=== PATIENT | male | born 1975 | race Two or more races ===

== ENCOUNTER 2021-08-25 08:40 | Inpatient (IN) | payer MEDICAID, OTHER ==
[~2021-08-25] VITALS: Ht 175.3 cm; Wt 132.5 kg
[2021-08-25] MEDS ORDERED: cloNIDine HCL 0.1 MG TAB ONE (08:44)
[2021-08-25] MEDS ORDERED: cloNIDine HCL 0.1 MG TAB PO ONE (09:00)
[2021-08-25 10:35] LABS: Basophils # (auto) 0.1 10 ^3/uL (0-0.2); Eosinophils # (auto) 0.1 10 ^3/uL (0-0.8); Eosinophils % (auto) 1.9 % (0.0-7.0); Hematocrit 46.9 % (41.0-53.0); Hemoglobin 15.4 g/dL (13.5-17.5); Lymphocytes # (auto) 1.5 10 ^3/uL (0.4-5.4); Lymphocytes % (auto) 20.7 % (10.0-50.0); Mean Corpuscular Hemoglobin 29.8 pg (28.0-32.0); Mean Corpuscular Hgb Conc. 32.9 g/dL (32.0-36.0); Mean Corpuscular Volume 90.7 fL (80.0-100.0); Monocytes # (auto) 0.6 10 ^3/uL (0-1.3); Monocytes % (auto) 8.8 % (0.0-12.0); Neutrophils % (auto) 67.6 % (37.0-80.0); Nucleated Red Blood Cells % 0.1 %; Red Blood Cells 5.17 10^6/uL (4.5-5.90); Red Cell Distribution Width 14.8 % (11.8-14.3); White Blood Cell 7.3 10^3/uL (4.4-10.8)
[2021-08-25 11:06] LABS: Calcium 8.8 mg/dL (8.5-10.1)
[2021-08-25 11:14] LABS: Albumin 3.4 g/dL (3.4-5.0); BUN/Creatinine Ratio 13.8; Potassium 4.2 mmol/L (3.5-5.1)
[2021-08-25 11:31] LABS: Bilirubin, Total 0.3 mg/dL (0.2-1.0); Total Protein 7.6 g/dL (6.4-8.2)
[2021-08-25] MEDS ORDERED: amLODIPine BESYLATE 5 MG TAB ONE (13:00)
[2021-08-25] MEDS ORDERED: amLODIPine BESYLATE 5 MG TAB PO ONE (13:15)
[2021-08-25] MEDS ORDERED: cefTRIAXone 1GM/50ML D5W 50 ML IV ONE (16:30)
[2021-08-25] MEDS ORDERED: CLINDAMYCIN 600MG IV 50 ML IV ONE (16:30)
[2021-08-25] MEDS ORDERED: LABETALOL HCL 5 MG/ML 4ML SYRINGE IV ONE ×2 (17:00→18:15)
[2021-08-25] MEDS ORDERED: hydrALAZINE HCL 20 MG/ML VL IV PRN (18:30)
[2021-08-25] MEDS ORDERED: ACETAMINOPHEN 325 MG TAB PO PRN (18:30)
[2021-08-25] MEDS ORDERED: HYDROcodone-ACET 5/325MG TAB PO PRN (18:30)
[2021-08-25] MEDS ORDERED: NITROGLYCERIN 0.4 MG SL TAB SL PRN (18:30)
[2021-08-25] MEDS ORDERED: MORPHINE SULFATE INJECTION 2 MG/ML SYRG IV PRN ×2 (18:30)
[2021-08-25] MEDS ORDERED: ONDANSETRON HCL 4 MG/2 ML VIAL IV PRN (18:30)
[2021-08-25] MEDS: amLODIPine BESYLATE 5 MG TAB PO SCH (21:48)
[2021-08-25] MEDS: FUROSEMIDE 40 MG/4 ML VIAL IV SCH (21:49)
[2021-08-25] MEDS: DOXYCYCLINE 100MG/250ML 250 ML IV SCH (21:49)
[2021-08-25] MEDS: METOPROLOL TARTRATE 25 MG TAB PO SCH (22:00)
[2021-08-25 22:38] VITALS: BP 154/89
[2021-08-25 23:51] VITALS: BP 154/89
[2021-08-26 05:00] VITALS: BP 143/70
[2021-08-26 05:34] LABS: Basophils # (auto) 0.1 10 ^3/uL (0-0.2); Eosinophils # (auto) 0.3 10 ^3/uL (0-0.8); Eosinophils % (auto) 3.4 % (0.0-7.0); Hematocrit 47.1 % (41.0-53.0); Hemoglobin 15.8 g/dL (13.5-17.5); Lymphocytes # (auto) 1.7 10 ^3/uL (0.4-5.4); Lymphocytes % (auto) 22.3 % (10.0-50.0); Mean Corpuscular Hemoglobin 30.3 pg (28.0-32.0); Mean Corpuscular Hgb Conc. 33.5 g/dL (32.0-36.0); Mean Corpuscular Volume 90.5 fL (80.0-100.0); Monocytes # (auto) 0.8 10 ^3/uL (0-1.3); Monocytes % (auto) 10.7 % (0.0-12.0); Neutrophils # (auto) 4.7 10 ^3/uL (1.6-8.6); Neutrophils % (auto) 62.6 % (37.0-80.0); Nucleated Red Blood Cells % 0.1 %; Red Cell Distribution Width 15.1 % (11.8-14.3); White Blood Cell 7.5 10^3/uL (4.4-10.8)
[2021-08-26] MEDS: FUROSEMIDE 40 MG/4 ML VIAL IV SCH ×2 (05:40→17:44)
[2021-08-26] MEDS: DOXYCYCLINE 100MG/250ML 250 ML IV SCH ×2 (05:40→17:44)
[2021-08-26 05:57] LABS: Albumin 3.5 g/dL (3.4-5.0); Calcium 8.9 mg/dL (8.5-10.1)
[2021-08-26 06:02] LABS: BUN/Creatinine Ratio 16.9; Bilirubin, Total 0.7 mg/dL (0.2-1.0); Total Protein 7.4 g/dL (6.4-8.2)
[2021-08-26 09:00] VITALS: BP 157/84
[2021-08-26] MEDS: METOPROLOL TARTRATE 25 MG TAB PO SCH ×2 (09:55→22:11)
[2021-08-26] MEDS: amLODIPine BESYLATE 5 MG TAB PO SCH (09:56)
[2021-08-26] MEDS: ENOXAPARIN SOD 40 MG/0.4 ML SYRINGE SC SCH (09:56)
[2021-08-26 12:02] VITALS: BP 145/91
[2021-08-26 15:28] LABS: Amphetamine Screen, Urine POSITIVE (NEGATIVE); Barbiturate Scree,Urine NEGATIVE (NEGATIVE); Benzodiazephine Screen, Urine NEGATIVE (NEGATIVE); Cannabinoid Screen, Urine NEGATIVE (NEGATIVE); Cocaine Screen, Urine NEGATIVE (NEGATIVE)
[2021-08-26 15:36] LABS: Alcohol, Urine < 3.0 mg/dL (0-10); Opiate Scree,Urine NEGATIVE (NEGATIVE); Phencyclidine Screen, Urine NEGATIVE (NEGATIVE)
[2021-08-26 17:23] VITALS: BP 143/99
[2021-08-26 22:00] VITALS: BP 141/82
[2021-08-27] MEDS: FUROSEMIDE 40 MG/4 ML VIAL IV SCH ×2 (06:30→17:46)
[2021-08-27] MEDS: DOXYCYCLINE 100MG/250ML 250 ML IV SCH ×2 (06:30→17:47)
[2021-08-27 09:00] VITALS: BP 166/91
[2021-08-27] MEDS: METOPROLOL TARTRATE 25 MG TAB PO SCH ×2 (09:08→22:07)
[2021-08-27] MEDS: ENOXAPARIN SOD 40 MG/0.4 ML SYRINGE SC SCH (09:09)
[2021-08-27] MEDS: amLODIPine BESYLATE 5 MG TAB PO SCH (09:09)
[2021-08-27 13:00] VITALS: BP 152/81
[2021-08-27 16:56] VITALS: BP 145/75
[2021-08-27 22:00] VITALS: BP 148/77
[2021-08-28 05:00] VITALS: BP 120/95
[2021-08-28 05:21] LABS: Basophils # (auto) 0.1 10 ^3/uL (0-0.2); Basophils % (auto) 1.1 % (0.0-2.0); Eosinophils # (auto) 0.2 10 ^3/uL (0-0.8); Eosinophils % (auto) 2.2 % (0.0-7.0); Hemoglobin 17.1 g/dL (13.5-17.5); Lymphocytes # (auto) 2.1 10 ^3/uL (0.4-5.4); Lymphocytes % (auto) 23.3 % (10.0-50.0); Mean Corpuscular Hemoglobin 30.4 pg (28.0-32.0); Mean Corpuscular Hgb Conc. 33.6 g/dL (32.0-36.0); Mean Corpuscular Volume 90.5 fL (80.0-100.0); Monocytes # (auto) 1.1 10 ^3/uL (0-1.3); Monocytes % (auto) 12.3 % (0.0-12.0); Neutrophils # (auto) 5.6 10 ^3/uL (1.6-8.6); Neutrophils % (auto) 61.1 % (37.0-80.0); Nucleated Red Blood Cells % 0.2 %; Red Blood Cells 5.64 10^6/uL (4.5-5.90); Red Cell Distribution Width 14.9 % (11.8-14.3); White Blood Cell 9.2 10^3/uL (4.4-10.8)
[2021-08-28] MEDS: FUROSEMIDE 40 MG/4 ML VIAL IV SCH (06:00)
[2021-08-28] MEDS: DOXYCYCLINE 100MG/250ML 250 ML IV SCH (06:30)
[2021-08-28 08:54] LABS: Anion Gap 8 (5-15); BUN/Creatinine Ratio 25.8; Blood Urea Nitrogen 24 mg/dL (7-18); Calcium 8.9 mg/dL (8.5-10.1); Carbon Dioxide 22 mmol/L (21-32); Chloride 103 mmol/L (98-107); GFR African American 114 mL/min; GFR Non-African American 94 mL/min; Glucose 105 mg/dL (74-106); Magnesium 2.6 mg/dL (1.6-2.6); Potassium 3.8 mmol/L (3.5-5.1); Sodium 133 mmol/L (136-145)
[2021-08-28 09:00] VITALS: BP 125/80
[2021-08-28] MEDS: METOPROLOL TARTRATE 25 MG TAB PO SCH (09:12)
[2021-08-28] MEDS: amLODIPine BESYLATE 5 MG TAB PO SCH (09:13)
[2021-08-28] MEDS: ENOXAPARIN SOD 40 MG/0.4 ML SYRINGE SC SCH (09:14)
[2021-08-28 13:00] VITALS: BP 151/90
[2021-08-28 17:00] VITALS: BP 129/67
[2021-08-28 18:16] VITALS: BP 129/67
== END 2021-08-28 21:10 | disposition home or self-care (01) | DRG 383 ==
LOC: ER 08:40 → TELE 18:28 → TELE-CENTR 22:06
PROVIDERS: ADMIT Internal Medicine; ATTEND Internal Medicine
DX: L03.115 Cellulitis of right lower limb (principal); I11.0 Hypertensive heart disease with heart failure; I50.9 Heart failure, unspecified; S81.802A Unspecified open wound, left lower leg, initial encounter; E66.01 Morbid (severe) obesity due to excess calories; I16.1 Hypertensive emergency; F17.210 Nicotine dependence, cigarettes, uncomplicated; Z20.822 Contact with and (suspected) exposure to COVID-19; L03.116 Cellulitis of left lower limb; Z88.0 Allergy status to penicillin; Z68.42 Body mass index [BMI] 45.0-49.9, adult; Z71.6 Tobacco abuse counseling; X58.XXXA Exposure to other specified factors, initial encounter; Y93.89 Activity, other specified; Y92.89 Other specified places as the place of occurrence of the external cause; Y99.8 Other external cause status
CPT/HCPCS: 36415; 71045; 73700; 80048; 80053; 80307; 83735; 83880; 84484; 85025; 87426; 93005; 93306; 93925; 93970; 96365; 96366; 96367; 96375; 96376; 99291; G0378; J0696; J3490

== ENCOUNTER 2021-12-18 00:46 | Emergency (ER) | payer MEDICAID ==
[~2021-12-18] VITALS: Ht 172.7 cm; Wt 103.4 kg
[2021-12-18 03:59] VITALS: BP 206/92
== END 2021-12-18 04:23 | disposition home or self-care (01) ==
LOC: ER 00:48
DX: L03.115 Cellulitis of right lower limb (principal); I10 Essential (primary) hypertension; F17.210 Nicotine dependence, cigarettes, uncomplicated; Z88.0 Allergy status to penicillin
CPT/HCPCS: 93005

== ENCOUNTER 2022-02-18 03:09 | Inpatient (IN) | payer MEDICAID ==
[~2022-02-18] VITALS: Ht 175.3 cm; Wt 131.9 kg
[2022-02-18 03:40] LABS: Basophils # (auto) 0.1 10 ^3/uL (0-0.2); Basophils % (auto) 0.6 % (0.0-2.0); Eosinophils # (auto) 0.1 10 ^3/uL (0-0.8); Eosinophils % (auto) 0.8 % (0.0-7.0); Hematocrit 42.2 % (41.0-53.0); Hemoglobin 14.1 g/dL (13.5-17.5); Lymphocytes # (auto) 1.8 10 ^3/uL (0.4-5.4); Lymphocytes % (auto) 13.5 % (10.0-50.0); Mean Corpuscular Hemoglobin 29.3 pg (28.0-32.0); Mean Corpuscular Hgb Conc. 33.4 g/dL (32.0-36.0); Mean Corpuscular Volume 87.6 fL (80.0-100.0); Monocytes # (auto) 1.2 10 ^3/uL (0-1.3); Monocytes % (auto) 9.1 % (0.0-12.0); Neutrophils # (auto) 9.8 10 ^3/uL (1.6-8.6); Red Blood Cells 4.81 10^6/uL (4.5-5.90); Red Cell Distribution Width 14.5 % (11.8-14.3)
[2022-02-18 03:55] LABS: Potassium 4.1 mmol/L (3.5-5.1)
[2022-02-18 03:59] LABS: Albumin 3.3 g/dL (3.4-5.0); BUN/Creatinine Ratio 12.3; Calcium 8.8 mg/dL (8.5-10.1); Magnesium 2.3 mg/dL (1.6-2.6)
[2022-02-18 04:01] LABS: Bilirubin, Total 0.4 mg/dL (0.2-1.0); Total Protein 7.7 g/dL (6.4-8.2)
[2022-02-18 06:11] LABS: Urine Bacteria NONE SEEN /hpf (None Seen); Urine Blood Negative /uL (Negative); Urine Specific Gravity 1.013 (1.001-1.035); Urine WBC <1 /hpf (0 - 3)
[2022-02-18 06:42] LABS: Alcohol, Urine < 3.0 mg/dL (0-10); Amphetamine Screen, Urine POSITIVE (NEGATIVE); Barbiturate Scree,Urine NEGATIVE (NEGATIVE); Benzodiazephine Screen, Urine NEGATIVE (NEGATIVE); Cannabinoid Screen, Urine NEGATIVE (NEGATIVE); Cocaine Screen, Urine NEGATIVE (NEGATIVE); Phencyclidine Screen, Urine NEGATIVE (NEGATIVE)
[2022-02-18 06:50] LABS: Opiate Scree,Urine NEGATIVE (NEGATIVE)
[2022-02-18] MEDS ORDERED: CLINDAMYCIN 600MG IV 50 ML IV ONE (07:15)
[2022-02-18] MEDS ORDERED: cefTRIAXone 1GM/50ML D5W 50 ML IV ONE (07:15)
[2022-02-18] MEDS ORDERED: IBUPROFEN 600 MG TAB PO ONE ×2 (08:15→14:15)
[2022-02-18] MEDS ORDERED: FUROSEMIDE 40 MG/4 ML VIAL IV ONE (08:45)
[2022-02-18] MEDS ORDERED: LABETALOL HCL 5 MG/ML 4ML SYRINGE IV ONE (09:00)
[2022-02-18] MEDS ORDERED: hydrALAZINE HCL 20 MG/ML VL IV ONE (10:00)
[2022-02-18] MEDS: METOPROLOL TARTRATE 25 MG TAB PO SCH ×2 (11:42→22:47)
[2022-02-18] MEDS: LISINOPRIL 20 MG TAB PO SCH (11:43)
[2022-02-18] MEDS ORDERED: DOCUSATE SOD 100 MG CAP PO PRN (15:45)
[2022-02-18] MEDS ORDERED: NITROGLYCERIN 0.4 MG SL TAB SL PRN (15:45)
[2022-02-18] MEDS ORDERED: ONDANSETRON HCL 4 MG/2 ML VIAL IV PRN (15:45)
[2022-02-18] MEDS ORDERED: HYDROcodone-ACET 5/325MG TAB PO PRN (15:45)
[2022-02-18] MEDS ORDERED: ACETAMINOPHEN 325 MG TAB PO PRN (15:45)
[2022-02-18] MEDS ORDERED: MORPHINE SULFATE INJECTION 2 MG/ML SYRG IV PRN (15:45)
[2022-02-18] MEDS: FUROSEMIDE 40 MG/4 ML VIAL IV SCH (18:31)
[2022-02-18] MEDS: CLINDAMYCIN 600MG IV 50 ML IV SCH (18:31)
[2022-02-18 22:00] VITALS: BP 155/78
[2022-02-18] MEDS: POTASSIUM CHL 20 Meq TABLET PO SCH (22:47)
[2022-02-18 22:56] VITALS: BP 155/78
[2022-02-19] MEDS: CLINDAMYCIN 600MG IV 50 ML IV SCH ×3 (02:13→17:57)
[2022-02-19] MEDS ORDERED: AMLO-489 PO (02:52)
[2022-02-19 05:00] VITALS: BP 138/81
[2022-02-19] MEDS: FUROSEMIDE 40 MG/4 ML VIAL IV SCH ×2 (05:45→17:57)
[2022-02-19 09:00] VITALS: BP 163/90
[2022-02-19] MEDS: POTASSIUM CHL 20 Meq TABLET PO SCH ×2 (09:04→22:00)
[2022-02-19] MEDS: METOPROLOL TARTRATE 25 MG TAB PO SCH ×2 (09:04→22:52)
[2022-02-19] MEDS: LISINOPRIL 20 MG TAB PO SCH (09:05)
[2022-02-19 09:24] LABS: Basophils # (auto) 0.1 10 ^3/uL (0-0.2); Basophils % (auto) 0.8 % (0.0-2.0); Eosinophils # (auto) 0.1 10 ^3/uL (0-0.8); Eosinophils % (auto) 0.7 % (0.0-7.0); Hematocrit 40.5 % (41.0-53.0); Hemoglobin 13.8 g/dL (13.5-17.5); Lymphocytes # (auto) 1.3 10 ^3/uL (0.4-5.4); Lymphocytes % (auto) 12.8 % (10.0-50.0); Mean Corpuscular Hemoglobin 29.7 pg (28.0-32.0); Mean Corpuscular Volume 87.3 fL (80.0-100.0); Monocytes # (auto) 1.2 10 ^3/uL (0-1.3); Monocytes % (auto) 11.8 % (0.0-12.0); Neutrophils # (auto) 7.5 10 ^3/uL (1.6-8.6); Neutrophils % (auto) 73.9 % (37.0-80.0); Nucleated Red Blood Cells % 0.1 %; Red Blood Cells 4.64 10^6/uL (4.5-5.90); Red Cell Distribution Width 14.8 % (11.8-14.3); White Blood Cell 10.2 10^3/uL (4.4-10.8)
[2022-02-19 09:42] LABS: Calcium 8.9 mg/dL (8.5-10.1); Potassium 4.2 mmol/L (3.5-5.1)
[2022-02-19 09:44] LABS: BUN/Creatinine Ratio 12.9
[2022-02-19 13:00] VITALS: BP 153/75
[2022-02-19 17:00] VITALS: BP 151/68
[2022-02-19 22:00] VITALS: BP 145/91
[2022-02-20] MEDS: CLINDAMYCIN 600MG IV 50 ML IV SCH ×3 (02:04→17:31)
[2022-02-20 05:00] VITALS: BP 149/95
[2022-02-20] MEDS: FUROSEMIDE 40 MG/4 ML VIAL IV SCH (05:41)
[2022-02-20 06:04] LABS: Basophils # (auto) 0.1 10 ^3/uL (0-0.2); Basophils % (auto) 1.3 % (0.0-2.0); Eosinophils # (auto) 0.1 10 ^3/uL (0-0.8); Eosinophils % (auto) 1.8 % (0.0-7.0); Hematocrit 42.6 % (41.0-53.0); Hemoglobin 14.4 g/dL (13.5-17.5); Lymphocytes # (auto) 1.9 10 ^3/uL (0.4-5.4); Lymphocytes % (auto) 23.6 % (10.0-50.0); Mean Corpuscular Hemoglobin 29.4 pg (28.0-32.0); Mean Corpuscular Hgb Conc. 33.7 g/dL (32.0-36.0); Mean Corpuscular Volume 87.1 fL (80.0-100.0); Monocytes # (auto) 1.2 10 ^3/uL (0-1.3); Monocytes % (auto) 15.6 % (0.0-12.0); Neutrophils # (auto) 4.5 10 ^3/uL (1.6-8.6); Neutrophils % (auto) 57.7 % (37.0-80.0); Nucleated Red Blood Cells % 0.2 %; Red Cell Distribution Width 14.4 % (11.8-14.3); White Blood Cell 7.9 10^3/uL (4.4-10.8)
[2022-02-20 06:26] LABS: Potassium 4.6 mmol/L (3.5-5.1)
[2022-02-20 06:35] LABS: BUN/Creatinine Ratio 20.9
[2022-02-20 08:00] VITALS: BP 177/86
[2022-02-20] MEDS: LISINOPRIL 20 MG TAB PO SCH (09:34)
[2022-02-20] MEDS: METOPROLOL TARTRATE 25 MG TAB PO SCH ×2 (09:34→22:02)
[2022-02-20] MEDS: POTASSIUM CHL 20 Meq TABLET PO SCH (09:34)
[2022-02-20] MEDS ORDERED: amLODIPine BESYLATE 5 MG TAB PO ONE (11:45)
[2022-02-20] MEDS ORDERED: ENOXAPARIN SOD 40 MG/0.4 ML SYRINGE SC ONE (12:00)
[2022-02-20 12:30] VITALS: BP 151/80
[2022-02-20 17:00] VITALS: BP 135/65
[2022-02-20 20:00] VITALS: BP 157/84
[2022-02-20 23:26] VITALS: BP 157/84
[2022-02-21] MEDS: CLINDAMYCIN 600MG IV 50 ML IV SCH (02:03)
[2022-02-21 05:10] VITALS: BP 135/67
[2022-02-21 07:55] LABS: Basophils # (auto) 0.1 10 ^3/uL (0-0.2); Basophils % (auto) 0.9 % (0.0-2.0); Eosinophils # (auto) 0.1 10 ^3/uL (0-0.8); Eosinophils % (auto) 1.4 % (0.0-7.0); Hematocrit 45.6 % (41.0-53.0); Hemoglobin 15.6 g/dL (13.5-17.5); Lymphocytes # (auto) 1.6 10 ^3/uL (0.4-5.4); Lymphocytes % (auto) 21.9 % (10.0-50.0); Mean Corpuscular Hemoglobin 29.5 pg (28.0-32.0); Mean Corpuscular Hgb Conc. 34.2 g/dL (32.0-36.0); Mean Corpuscular Volume 86.3 fL (80.0-100.0); Monocytes # (auto) 0.9 10 ^3/uL (0-1.3); Monocytes % (auto) 12.6 % (0.0-12.0); Neutrophils # (auto) 4.7 10 ^3/uL (1.6-8.6); Neutrophils % (auto) 63.2 % (37.0-80.0); Nucleated Red Blood Cells % 0.2 %; Red Blood Cells 5.29 10^6/uL (4.5-5.90); Red Cell Distribution Width 14.1 % (11.8-14.3); White Blood Cell 7.4 10^3/uL (4.4-10.8)
[2022-02-21 08:05] LABS: BUN/Creatinine Ratio 25.3; Calcium 9.2 mg/dL (8.5-10.1); Potassium 4.6 mmol/L (3.5-5.1)
[2022-02-21] MEDS ORDERED: ONDANSETRON HCL 4 MG/2 ML VIAL ONE (08:41)
[2022-02-21] MEDS ORDERED: fentaNYL CITRATE 100 MCG/2 ML VL ONE (08:41)
[2022-02-21] MEDS ORDERED: PROPOFOL 10 MG/ML 20 ML IV ONE (08:41)
[2022-02-21] MEDS ORDERED: SODIUM CHLORIDE LOCK 10 ML ONE (08:41)
[2022-02-21] MEDS ORDERED: MIDAZOLAM HCL 2MG/2ML 2ml VIAL (1mg/ml) ONE (08:41)
[2022-02-21] MEDS ORDERED: DexAMETHasone SOD PHOS 10MG/1ML VIAL INJ ONE (08:55)
[2022-02-21 09:00] VITALS: BP 164/81
[2022-02-21] MEDS ORDERED: VANCOMYCIN HCL 1000 MG VL ONE (09:14)
[2022-02-21] MEDS ORDERED: CLINDAMYCIN 900MG IV 50 ML IV ONE (09:24)
[2022-02-21] MEDS ORDERED: CLINDAMYCIN 600MG IV 50 ML IV ONE (09:24)
[2022-02-21] MEDS ORDERED: MORPHINE SULFATE 4 MG/ML SYR/VIAL IV PRN (09:30)
[2022-02-21] MEDS ORDERED: fentaNYL CITRATE 100 MCG/2 ML VL IV PRN (09:30)
[2022-02-21] MEDS ORDERED: KETOROLAC TROMETH 30 MG/ML 1ML VIAL IV ONE (09:30)
[2022-02-21] MEDS ORDERED: METOCLOPRAMIDE HCL 5MG/ml INJ 2ml VIAL IV PRN (09:30)
[2022-02-21] MEDS ORDERED: FUROSEMIDE 20 MG TAB PO SCH (10:00)
[2022-02-21] MEDS ORDERED: amLODIPine BESYLATE 5 MG TAB PO SCH (10:00)
[2022-02-21] MEDS ORDERED: POTASSIUM CHL 20 Meq TABLET PO SCH (10:00)
[2022-02-21] MEDS: HYDROmorphone HCL 2 MG/ML VL IV PRN ×4 (10:17→10:48)
[2022-02-21] MEDS ORDERED: FUR20T PO (11:28)
[2022-02-21] MEDS ORDERED: AML5T PO (11:28)
[2022-02-21] MEDS ORDERED: POTA-220 PO (11:28)
[2022-02-21] MEDS ORDERED: MET25T PO (11:28)
[2022-02-21] MEDS ORDERED: LISI20TA28 PO (11:28)
[2022-02-21] MEDS ORDERED: CLIN300C8 PO (11:30)
[2022-02-21 12:25] LABS: INR 1.1 (0.9-1.15); Partial Thromboplastin Time 30.5 sec (23.6-33.0)
[2022-02-21] MEDS: LISINOPRIL 20 MG TAB PO SCH (12:31)
[2022-02-21 13:00] VITALS: BP 140/70
[2022-02-21 13:13] VITALS: BP 164/81
[2022-02-21] MEDS ORDERED: METOPROLOL TARTRATE 25 MG TAB PO SCH (22:00)
== END 2022-02-21 16:41 | disposition home health service (06) | DRG 361 ==
LOC: ER 03:09 → TELE 15:40 → TELE-WESTW 20:30
PROVIDERS: ADMIT Internal Medicine; ATTEND Internal Medicine
PROC: 0HRMXK3 Replacement of Right Foot Skin with Nonautologous Tissue Substitute, Full Thickness, External Approach (ICD-10-PCS; 2022-02-21)
PROC: 0HRNXK3 Replacement of Left Foot Skin with Nonautologous Tissue Substitute, Full Thickness, External Approach (ICD-10-PCS; principal; 2022-02-21 09:28)
DX: L03.116 Cellulitis of left lower limb (principal); I50.43 Acute on chronic combined systolic (congestive) and diastolic (congestive) heart failure; L97.319 Non-pressure chronic ulcer of right ankle with unspecified severity; L03.115 Cellulitis of right lower limb; I11.0 Hypertensive heart disease with heart failure; L97.929 Non-pressure chronic ulcer of unspecified part of left lower leg with unspecified severity; E66.01 Morbid (severe) obesity due to excess calories; Z20.822 Contact with and (suspected) exposure to COVID-19; F15.10 Other stimulant abuse, uncomplicated; F17.210 Nicotine dependence, cigarettes, uncomplicated; Z59.00 Homelessness unspecified; Z68.41 Body mass index [BMI] 40.0-44.9, adult; Z91.19 Patient's noncompliance with other medical treatment and regimen; Z88.0 Allergy status to penicillin
CPT/HCPCS: 36415; 71045; 80048; 80053; 80307; 81001; 83605; 83735; 83880; 85025; 85610; 85730; 87040; 87070; 87075; 87077; 87186; 87205; 93005; 93970; 96365; 96366; 96367; 96375; 96376; G0378; J0696; J1100; J1885; J2250; J2405; J2704; J3490; Q4126

== ENCOUNTER 2022-04-16 17:10 | Emergency (ER) | payer MEDICAID ==
[~2022-04-16] VITALS: Ht 175.3 cm; Wt 127.0 kg
[~2022-04-16 17:10] MED LIST: AML5T PO; CLIN300C8 PO; FUR20T PO; LISI20TA28 PO; MET25T PO; POTA-220 PO
[2022-04-16 17:25] VITALS: BP 186/85
== END 2022-04-17 01:53 | disposition home or self-care (01) ==
LOC: ER 17:10
DX: S80.922D Unspecified superficial injury of left lower leg, subsequent encounter (principal); S80.921D Unspecified superficial injury of right lower leg, subsequent encounter; I10 Essential (primary) hypertension; E11.9 Type 2 diabetes mellitus without complications; F17.210 Nicotine dependence, cigarettes, uncomplicated; Z79.2 Long term (current) use of antibiotics; Z79.899 Other long term (current) drug therapy; Z88.0 Allergy status to penicillin; X58.XXXD Exposure to other specified factors, subsequent encounter

== ENCOUNTER 2022-05-29 23:19 | Emergency (ER) | payer MEDICAID ==
[~2022-05-29] VITALS: Ht 175.3 cm; Wt 117.9 kg
[2022-05-29] MEDS ORDERED: amLODIPine BESYLATE 5 MG TAB PO ONE (23:45)
[2022-05-30 00:53] LABS: Basophils # (auto) 0.1 10 ^3/uL (0-0.2); Basophils % (auto) 0.9 % (0.0-2.0); Eosinophils # (auto) 0.2 10 ^3/uL (0-0.8); Eosinophils % (auto) 2.2 % (0.0-7.0); Hematocrit 42.2 % (41.0-53.0); Hemoglobin 14.4 g/dL (13.5-17.5); Lymphocytes # (auto) 2.3 10 ^3/uL (0.4-5.4); Lymphocytes % (auto) 29.2 % (10.0-50.0); Mean Corpuscular Hemoglobin 30.4 pg (28.0-32.0); Mean Corpuscular Hgb Conc. 34.2 g/dL (32.0-36.0); Mean Corpuscular Volume 88.7 fL (80.0-100.0); Monocytes # (auto) 0.9 10 ^3/uL (0-1.3); Monocytes % (auto) 11.2 % (0.0-12.0); Neutrophils # (auto) 4.4 10 ^3/uL (1.6-8.6); Neutrophils % (auto) 56.5 % (37.0-80.0); Nucleated Red Blood Cells % 0.1 %; Red Blood Cells 4.75 10^6/uL (4.5-5.90); Red Cell Distribution Width 15.4 % (11.8-14.3); White Blood Cell 7.8 10^3/uL (4.4-10.8)
[2022-05-30 01:07] LABS: Albumin 3.8 g/dL (3.4-5.0); Calcium 8.7 mg/dL (8.5-10.1); Magnesium 2.3 mg/dL (1.6-2.6); Potassium 3.7 mmol/L (3.5-5.1)
[2022-05-30 01:10] LABS: Bilirubin, Total 0.4 mg/dL (0.2-1.0); Total Protein 7.3 g/dL (6.4-8.2)
[2022-05-30 03:20] VITALS: BP 196/89
[2022-05-30] MEDS ORDERED: AML5T PO (03:37)
[2022-05-30] MEDS ORDERED: LISI20TA28 PO (03:37)
[2022-05-30] MEDS ORDERED: METO1TAB77 PO (03:37)
== END 2022-05-30 04:20 | disposition home or self-care (01) ==
LOC: ER 23:19
DX: I11.0 Hypertensive heart disease with heart failure (principal); I50.9 Heart failure, unspecified; F12.10 Cannabis abuse, uncomplicated; F15.10 Other stimulant abuse, uncomplicated; F17.210 Nicotine dependence, cigarettes, uncomplicated
CPT/HCPCS: 36415; 71046; 80053; 83735; 84484; 85025; 93005